=== PATIENT | male | born 1955 | race Caucasian/White ===

== ENCOUNTER 2021-05-09 09:38 | Emergency (ER) | payer OTHER ==
[2021-05-09] MEDS ORDERED: NA CHLORIDE 0.9% 500 ML ONE (10:27)
[2021-05-09 10:35] LABS: Absolute Lymphocytes (CBC) 1.1 K/uL (0.7-4.9); Basophils % 0.8 % (0-1.3); Hematocrit 44.3 % (39.6-49.0); Lymphocytes % 17.3 % (15.3-44.8); MPV 8.1 fL (7.6-11.3); RBC Red Blood Cell Count 4.61 M/uL (4.33-5.43)
[2021-05-09 10:39] LABS: Protime INR 0.97
[2021-05-09 10:42] LABS: Urine Blood Negative (Negative); Urine Glucose Negative (Negative); Urine Protein Negative (Negative); Urine Specific Gravity 1.015 (1.005-1.030); Urine pH 8.5 (5.0-7.0)
--- NOTE | 2021-05-09 10:48 | RAD REPORT ---
EXAM DESCRIPTION: CT - Head Brain Wo Cont - 05/09/2021 10:26 am CLINICAL HISTORY: Syncope COMPARISON: None. TECHNIQUE: Computed axial tomography of the head was obtained. IV contrast was not requested. All CT scans are performed using dose optimization technique as appropriate and may include automated exposure control or mA/KV adjustment according to patient size. FINDINGS: An intracranial bleed is not seen . The ventricles are normal in caliber. No extra-axial fluid collection is noted. Fluid within the sinuses/ mastoids is not seen. IMPRESSION: No acute intracranial abnormality is seen. If patient's symptoms persist MRI of the bra in would be recommended.
[2021-05-09 10:52] LABS: Magnesium 2.2 mg/dL (1.8-2.4); Potassium 4.1 mmol/L (3.5-5.1); Troponin (Emerg Dept Use Only) 0.02 ng/mL (0.0-0.045)
--- NOTE | 2021-05-09 11:09 | ER ---
Nurse's Notes [facility] Name: Karen Webster Age: 65 yrs Sex: Male : 1955 Arrival Date: 05/09/2021 Time: 09:43 Bed 13 Private MD: Diagnosis: Syncope Presentation: 05/09 09:49 Chief complaint: Patient states: got lightheaded and almost passed out while at [facility] with a pt , had recent stroke 4 weeks ago, TPa was given but he had an allergic reaction after infusion was complete, pt denies any unilateral weakness, ladies attendant equal , no facial droop noted, pt states he has hx of POTS, feels better but not quite back to normal self. Coronavirus screen: At this time, the client does not indicate any symptoms associated with coronavirus-19. Ebola Screen: Patient negative for fever greater than or equal to 101.5 degrees Fahrenheit, and additional compatible Ebola Virus Disease symptoms Patient denies exposure to infectious person. Patient denies travel to an Ebola-affected area in the 21 days before illness onset. No symptoms or risks identified at this time. Initial Sepsis Screen: Does the patient meet any 2 criteria? No. Patient's initial sepsis screen is negative. Does the patient have a suspected source of infection? No. Patient's initial sepsis screen is negative. Risk Assessment: Do you want to hurt yourself or someone else? Patient reports no desire to harm self or others. 09:49 Method Of Arrival: Stretcher 09:49 Acuity: LEILANI 3 iw 09:52 Onset of symptoms was May 09, 2021. iw - Family history:: not pertinent. - Hospitalizations: : No recent hospitalization is reported. Screenin:25 Abuse screen: Denies threats or abuse. Nutritional screening: No deficits noted. vg1 Tuberculosis screening: No symptoms or risk factors identified. Fall Risk No fall in past 12 months (0 pts). No secondary diagnosis (0 pts). IV access (20 points). Ambulatory Aid- None/Bed Rest/Nurse Assist (0 pts). Gait- Normal/Bed Rest/Wheelchair (0 pts) Mental Status- Oriented to own ability (0 pts). Total Cifuentes Fall Scale indicates No Risk (0-24 pts). Assessment: 10:10 General: Appears in no apparent distress. comfortable, Behavior is calm, cooperative. vg1 Pain: Denies pain. Neuro: Level of Consciousness is awake, alert, obeys commands, Oriented to person, place, time, situation, Reports dizziness, Denies weakness dizziness. Cardiovascular: Patient's skin is warm and dry. Respiratory: Airway is patent Respiratory effort is even, unlabored. GI: Abdomen is round obese. : No signs and/or symptoms were reported regarding the genitourinary system. EENT: No signs and/or symptoms were reported regarding the EENT system. Derm: Skin is intact, Skin is pink, warm \T\ dry. Musculoskeletal: Circulation, motion, and sensation intact. 11:09 Reassessment: Patient appears in no apparent distress at this time. No changes from vg1 previously documented assessment. Patient and/or family updated on plan of care and expected duration. Pain level reassessed. Patient is alert, oriented x 3, equal unlabored respirations, skin warm/dry/pink. Patient denies pain at this time. Patient states feeling better. Vital Signs: 09:49 BP 162 / 93; Pulse 74; Resp 16; Pulse Ox 100% on R/A; iw 11:00 BP 151 / 84; Pulse 87; Resp 20; Pulse Ox 100% ; vg1 ED Course: 09:43 Patient arrived in ED. mr 09:52 Triage completed. iw 09:56 Morgan Wheat MD is Attending Physician. rn 10:03 Rakel Howell, RN is Primary Nurse. vg1 10:12 Patient has correct armband on for positive identification. Placed in gown. Bed in low mh5 position. Call light in reach. Side rails up X 1. Adult w/ patient. Warm blanket given. Pillow given. desk monitor on. Pulse ox on. NIBP on. 10:13 EKG done, by ED staff, reviewed by Morgan Wheat MD. mh5 10:18 Initial lab(s) drawn, by me, sent to lab. Missed attempt(s): 22 gauge in right vg1 antecubital area. 10:23 Inserted saline lock: 22 gauge in left antecubital area, using aseptic technique. vg1 ,using aseptic technique. Completed by Rivera Hope. 10:25 Arm band placed on. vg1 10:26 CT Head Brain wo Cont In Process Unspecified. EDMS 11:26 No provider procedures requiring assistance completed. IV discontinued, intact, vg1 bleeding controlled, No redness/swelling at site. Pressure dressing applied. Administered Medications: 10:30 Drug: NS 0.9% 500 ml Route: IV; Rate: bolus; Site: left antecubital; vg1 11:11 Follow up: IV Status: Completed infusion; IV Intake: 500ml vg1 Point of Care Testing: Blood Glucose: 09:53 Blood Glucose: 97 mg/dL; Ranges: Intake: 11:11 IV: 500ml; Total: 500ml. vg1 Outcome: : Discharge ordered by . rn 11:26 Discharged to home ambulatory, with friend. vg1 11:26 Condition: stable 11:26 Discharge instructions given to patient, Instructed on discharge instructions, follow up and referral plans. Demonstrated understanding of instructions, follow-up care. 11:27 Patient left the ED. vg1 Signatures: Dispatcher [employer] TAWNY NavarroMilena vera Irene, RN Morgan Rodriguez MD MD rn Martinez, [facility] Rakel Howell RN RN vg1 Corrections: (The following items were deleted from the chart) 09:53 09:49 Chief complaint: Patient states: got lightheaded and [facility]
--- NOTE | 2021-05-09 11:10 | EDPHYS ---
Physician Documentation [facility] Name: Karen Webster Age: 65 yrs Sex: Male : 1955 Arrival Date: 05/09/2021 Time: 09:43 Bed 13 Private MD: ED Physician Morgan Wheat HPI: 05/09 10:11 This 65 yrs old Male presents to ER via Stretcher with complaints of Syncope. rn 10:11 The patient has experienced syncope. Onset: The symptoms/episode began/occurred just rn prior to arrival. Duration: This was a single episode. Context: occurred at a hospital, occurred while the patient was sitting, Just prior to the episode the patient experienced lightheadedness. Associated injury: The patient did not suffer any apparent associated injury. Associated signs and symptoms: Pertinent positives: dizziness, lightheadedness, Pertinent negatives: abdominal pain, agitation, chest pain, confusion, diaphoresis, diarrhea, headache, numbness, seizure, vomiting, weakness. Current symptoms: Currently, the patient is not experiencing any symptoms. The patient has experienced similar episodes in the past. The patient has been recently seen by a physician:. Patient reports here with another patient at [facility], patient was not here for personal reasons. Was in seated position when felt lightheadedness, dizziness, followed by witnessed syncopal episode. Denies preceding chest pain/headache/shortness of breath/abdominal pain. Reports feels better currently without intervention. Denies focal weakness or numbness. Patient does report he got a dose of TPA 4 weeks ago for stroke but does not have any residual symptoms. Does not feel ill. Patient does report history of POTS syndrome. - Family history:: not pertinent. - Hospitalizations: : No recent hospitalization is reported. ROS: 10:11 Constitutional: Negative for fever, chills, and weight loss, Eyes: Negative for injury, rn pain, redness, and discharge, ENT: Negative for injury, pain, and discharge, Neck: Negative for injury, pain, and swelling, Cardiovascular: Negative for chest pain, palpitations, and edema, Respiratory: Negative for shortness of breath, cough, wheezing, and pleuritic chest pain, Abdomen/GI: Negative for abdominal pain, nausea, vomiting, diarrhea, and constipation, Back: Negative for injury and pain, : Negative for injury, bleeding, discharge, and swelling, MS/Extremity: Negative for injury and deformity, Skin: Negative for injury, rash, and discoloration, Neuro: Negative for headache, numbness, tingling, and seizure. 10:11 All other systems are negative. Exam: 10:11 Constitutional: This is a well developed, well nourished patient who is awake, alert, rn and in no acute distress. Head/Face: Normocephalic, atraumatic. Eyes: Pupils equal round and reactive to light, extra-ocular motions intact. Lids and lashes normal. Conjunctiva and sclera are non-icteric and not injected. Cornea within normal limits. Periorbital areas with no swelling, redness, or edema. ENT: Moist mucous membranes, no swelling, no stridor Cardiovascular: Regular rate and rhythm. No pulse deficits. Respiratory: Speaking full sentences, nonlabored. No increased work of breathing, no retractions or nasal flaring. Abdomen/GI: Soft, non-tender no masses Skin: Warm, dry MS/ Extremity: Pulses equal, no cyanosis. Neurovascular intact. Full, normal range of motion. Equal circumference. Neuro: Awake and alert, GCS 15, oriented to person, place, time, and situation. Cranial nerves II-XII grossly intact. Motor strength 5/5 in all extremities. Sensory grossly intact. Cerebellar exam normal. 10:27 ECG was reviewed by the Attending Physician. rn Vital Signs: 09:49 BP 162 / 93; Pulse 74; Resp 16; Pulse Ox 100% on R/A; iw 11:00 BP 151 / 84; Pulse 87; Resp 20; Pulse Ox 100% ; vg1 MDM: 09:56 Patient medically screened. rn 10:03 Data interpreted: teletypesetter monitor: rate is 81 beats/min, rhythm is with no ectopy, rn Interpretation: normal rate, normal rhythm, Pulse oximetry: on room air is 97 %. Interpretation: normal. 11:08 Differential Diagnosis: cardiac arrhythmia, idiopathic syncope, vasovagal episode. Data rn reviewed: vital signs, nurses notes, lab test result(s), EKG, radiologic studies, CT scan, and as a result, I will discharge patient. Counseling: I had a detailed discussion with the patient and/or guardian regarding: the historical points, exam findings, and any diagnostic results supporting the discharge/admit diagnosis, lab results, radiology results, the need for outpatient follow up, to return to the emergency department if symptoms worsen or persist or if there are any questions or concerns that arise at home. Response to treatment: the patient's symptoms have resolved after treatment, the patient's condition has returned to base line, the patient is now symptom free, patient is well hydrated. and as a result, I will discharge patient. Special discussion: I discussed with the patient/guardian in detail that at this point there is no indication for admission to the hospital. It is understood, however, that if the symptoms persist or worsen the patient needs to return immediately for re-evaluation. 05/09 10:00 Order name: Glucose, Ancillary Testing; Complete Time: 10: EDMS 05/09 10:03 Order name: Basic Metabolic Panel; Complete Time: : rn 05/09 10:03 Order name: CBC with Diff; Complete Time: rn 05/09 10:03 Order name: Magnesium; Complete Time: : rn 05/09 10:03 Order name: Protime (+inr); Complete Time: rn 05/09 10:03 Order name: Ptt, Activated; Complete Time: rn 05/09 10:03 Order name: Troponin (emerg Dept Use Only); Complete Time: : rn 05/09 10:03 Order name: CT Head Brain wo Cont; Complete Time: rn 05/09 10:03 Order name: EKG; Complete Time: : rn 05/09 10:03 Order name: Cardiac monitoring; Complete Time: : rn 05/09 10:03 Order name: EKG - Nurse/Tech; Complete Time: : rn 05/09 10:03 Order name: IV Saline Lock; Complete Time: : rn 05/09 10:42 Order name: Urine Dipstick-Ancillary; Complete Time: 10: EDMS 05/09 10:03 Order name: Labs collected and sent; Complete Time: : rn 05/09 10:03 Order name: O2 Per Protocol; Complete Time: : rn 05/09 10:03 Order name: O2 Sat Monitoring; Complete Time: 10: rn 05/09 10:03 Order name: Urine Dipstick-Ancillary (obtain specimen); Complete Time: 10:44 rn EC: Rate is 73 beats/min. Rhythm is regular. QRS [place] is Normal. CO interval is normal. QRS rn interval is prolonged at 146 msec. QT interval is normal. No Q waves. T waves are Normal. No ST changes noted. Clinical impression: NSR, RBBB. Interpreted by me. Reviewed by me. Administered Medications: 10:30 Drug: NS 0.9% 500 ml Route: IV; Rate: bolus; Site: left antecubital; vg1 11:11 Follow up: IV Status: Completed infusion; IV Intake: 500ml vg1 Point of Care Testing: Blood Glucose: 09:53 Blood Glucose: 97 mg/dL; iw Ranges: Critical Glucose Levels:Adult <50 mg/dl or >400 mg/dl <40 mg/dl or >180 mg/dl Disposition Summary: 05/09/21 11:09 Discharge Ordered Location: Home rn Problem: new rn Symptoms: are resolved rn Condition: Stable rn Diagnosis - Syncope rn Followup: rn - With: Private Physician - When: As needed - Reason: Recheck today's complaints, Re-evaluation by your physician Discharge Instructions: - Discharge Summary Sheet rn - Syncope rn Forms: - Medication Reconciliation Form rn - Thank You Letter rn - Antibiotic draw furnace tender - Prescription Opioid Use rn Signatures: Dispatcher [employer] Morgan Aguilera MD MD rn Garcia, Victoria, RN RN 1
[2021-05-09 11:36] VITALS: O2SAT 100
[2021-05-09 11:37] VITALS: BP 151/84
== END 2021-05-09 11:27 | disposition home or self-care (01) ==
LOC: ER 09:38
DX: R55 Syncope and collapse (principal)
CPT/HCPCS: 93005; 85025; 80048; 36415; 83735; 85610; 82947; 85730; 81003; 84484; 70450; 96360; 99284; J7040